=== PATIENT | male | born 1940 | race Caucasian/White ===

== ENCOUNTER 2019-02-28 22:49 | Inpatient (IN) | payer OTHER ==
[~2019-02-28] VITALS: Ht 177.8 cm; Wt 97.7 kg
[2019-03-01] MEDS ORDERED: ASA81BEC PO (00:50)
[2019-03-01] MEDS ORDERED: ARICEPT10 M1 PO (00:50)
[2019-03-01] MEDS ORDERED: KLOR-CON M2020 MEQ PO (00:52)
[2019-03-01] MEDS ORDERED: DULCOLAX10 MG RECTAL (00:52)
[2019-03-01] MEDS ORDERED: LANTUS SUBQ (00:53)
[2019-03-01] MEDS ORDERED: PRINIVIL20 M1 PO (00:54)
[2019-03-01] MEDS ORDERED: MILK OF MA400 MG/5 M PO (00:55)
[2019-03-01] MEDS ORDERED: NORVASC10 MG PO (00:56)
[2019-03-01] MEDS ORDERED: 8 HOUR650 MG PO (00:57)
[2019-03-01] MEDS ORDERED: ATIVAN2 MG PO (00:58)
[2019-03-01] MEDS ORDERED: CARVEDILOL12.5 MG PO (00:59)
[2019-03-01] MEDS ORDERED: PLAVIX 75 MG TA75 MG PO (01:00)
[2019-03-01] MEDS ORDERED: PROTONIX40 M3 PO (01:00)
[2019-03-01] MEDS ORDERED: HUMALOG100 UNIT/1 SUBQ (01:01)
[2019-03-01] MEDS ORDERED: CATAPRES-TTS 11 EACH TRANSDERM (01:03)
[2019-03-01] MEDS ORDERED: CENTRUM SILVER1 EAC4 PO (01:04)
[2019-03-01] MEDS ORDERED: SEROQUEL 25 MG25 MG PO (01:05)
[2019-03-01] MEDS ORDERED: SEROQUEL 25 MG25 M1 PO (01:06)
[2019-03-01] MEDS ORDERED: ZYPREXA2.5 MG PO (01:20)
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
--- NOTE | 2019-03-01 02:28 | NUR ---
PATIENT AWOKE AND BED ALARM WENT OFF. NURSE ASSISTED PATIENT TO THE BATHROOM TO VOID PER HIS REQUEST. PATIENT C/O RIGHT SIDE OF HEAD AND EAR IS HURTING. EMS STATES PATIENT SAID HE HAD A TOOTHACHE ON HIS WAY TO [facility]. PATIENT DENIED IT ONCE HE GOT HERE. TYLENOL 650MG PO ORDERED AND WILL GIVE. PATIENT BACK TO SLEEP. WILL CONTINUE TO MONITOR.
[2019-03-01 09:46] VITALS: BP 167/88
--- NOTE | 2019-03-01 09:57 | NUR ---
PT AGITATED AND DELUSIONAL UPON INITAL ASSESSMENT YELLING AT FURNACE MECHANIC TO GET OUT OF HIS HOUSE-REFUSING TO GET UP FOR BREAKFAST-DID ALLOW VS AND BLOOD SUGAR-BS 101.AT APPROX 0845 ALERT BY RT STAFF SITTING AT NURSING STATION THAT SHE HAD HEARD A NOISE AND SAW PT SITTING ON FLOOR IN DOORWAY/HALLWAY AREA OF ROOM. IS RESISITIVE WITH COMPLETE ASSESSMENT BUT NO NOTED BRUSIING SCRAPES,ABRASIONS NOTED,DENIES C/O PAIN/DISCOMFORT. VS OBTAINED BP 160/84 P-78 R14- ASSSITED BACK TO BED WITH 2-3 STAFF-REMAINS UNCCOPERATIVE AND DOES NOT FOLLOW VERBAL COMMANDS-REFUSES BREAKFAST AND PO MEDS WHEN OFFERED.
[2019-03-01 10:10] VITALS: BP 163/74
--- NOTE | 2019-03-01 12:33 | NUR ---
RAPID RESPONSE CALLED FOR PT IN ROOM 518-A. SEE RR FLOWSHEET FOR DETAILS. PT WILL REMAIN ON UNIT FOR THE TIME BEING PER DR ARNOLD.
--- NOTE | 2019-03-01 12:44 | NUR ---
BLOOD SUGAR REPORTED TO BE 254 AT 1130 WHEN CHECKED BY INFORMATION SYSTEMS SECURITY SPECIALIST-12 UNITS OF INSULIN DRAWN UP/COSIGNED AND ADMINSTERED AT APPROX 1200-DURING ADMINISTRATION OF INSULIN NOTED TO BE DIAPHORETIC-SKIN COOL TO TOUCH AND PALE-RESPONDS TO PAINFUL STIMULI BUT NOT TO VERBAL COMMANDS-RAPID RESPONSE INITATED-VS OBTAINED PULSE 64 AND IRREGULAR-O2 SAT 94 PERCENT ON RA-BP NOT REGISTERING ON MACHINE-ADRIENNE BP-110/64. ASSSITED TO BED BY 3 STAFF-IV PLACED USING 20 GUAGE NEEDLE IN RIGHT ANTICUBITAL AND NORMAL SALINE STARTED PER MD ORDER. BLOOD SUGAR RECHECKED AT APPROX 1214 AND IS 286. BP 119/58 9 63 02 SAT 95PERCENT. WILL RESPOND TO VERBAL COOMANDS AT APPROX 1225-BUT IS SLOW TO RESPOND. AT APPROX 1240 BP 120/60 P 78-RESP EVEN AND REGUALR O2 SAT 96 ON RA. ON CONSTANT OBSERVATION UNTIL COMPLETION OF IV FLUIDS- RESPONSE INITATED
[2019-03-01 12:53] LABS: ALBUMIN 3.3 g/dL (3.4-5.0); ANION GAP 10 mmol/L (7-16); BUN 15 mg/dL (7-18); CHLORIDE 104 mmol/L (98-107); CO2 25 mmol/L (21-32); CREATININE 1.2 mg/dL (0.7-1.3); GLUCOSE 161 mg/dL (74-106); MAGNESIUM 1.6 mg/dL (1.8-2.4); POTASSIUM 4.5 mmol/L (3.5-5.1); SGOT 18 U/L (15-37); SGPT 26 U/L (30-65); SODIUM 139 mmol/L (136-145); TOTAL BILIRUBIN 0.5 mg/dL (<0.1-1.0); TOTAL PROTEIN 6.6 g/dL (6.4-8.2); TROPONIN-I <0.06 ng/mL (<0.06)
--- NOTE | 2019-03-01 14:52 | NUR ---
SW met with pt's son Jae and daughter in law Audrey. They both said pt's son Alex is out of town at the moment but he lives in [place]; Audrey and Jae live in [place]. SW asked them if they had any questions about hospice. They said not at this time, however, when pt is closer to being discharged from this unit they may pick a hospice provider at that time. Jae prefers SW make contact with Audrey about his father because she better understands this process. Audrey's number is [phone]. SW team will continue to follow pt during his stay on this unit.
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
--- NOTE | 2019-03-01 17:37 | NUR ---
REMAINS IN BED WITH EYES TIGHTLY CLOSED-FACE FLUSHED AND WHEN COVERS REMOVED TO CHECK BP YELLS LOUDLY "COVER ME BACK UP YUE YOU-AFTER SEVERAL ATTEMPTS WAS ABLE TO OBTAIN BP 133/61 P 55 RESP 16 O2 SAT 97. REFUSES TO COMPLY WITH REQUESTS FROM STAFF-2 STAFF AT BEDSIDE TO GET ACCUCHECK 133- REFUSING TO GET UP OR EAT-REFUSING TO COMMUNICATE WITH STAFF-CLOSES EYES AND ROLLS AWAY FROM STAFF. DR CATALINA PRINGLE RE HOLDING INSULIN-AWAITING RETURN CALL.
--- NOTE | 2019-03-01 17:42 | NUR ---
DR. CRANE CONTACTED REGARDING NOT ADMINISTERING 4 UNITS OF INSULIN D/T PT REFUSING TO EAT.
[2019-03-01 19:10] LABS: HEMATOCRIT 44.4 % (42.0-52.0); HEMOGLOBIN 14.8 gm/dL (14.0-18.0); MCH 30.5 pg (26.0-34.0); MCHC 33.4 g/dL (28.0-37.0); MCV 91.3 fL (80.0-100.0); RBC 4.86 mil/uL (4.50-6.00); RDW 14.3 % (10.5-14.5); WBC 10.4 thou/uL (4.0-11.0)
[2019-03-01 20:10] VITALS: BP 149/60
[2019-03-01 23:06] LABS: GLYCOHEMOGLOBIN (HGB A1C) 7.1 % (4.8-5.6)
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
--- NOTE | 2019-03-02 07:30 | NUR ---
Assumed care of patient this am. Patient sitting in wheel chair in mileu at a table by himself. Patient was irritable and asked about his . Patient used several explicit, innappropriate words to express his frustrations with being here. Patient ambulates with wheel chair. Patient takes medications whole with fluids. Patients affect tense. Patients assessment shows wheezes in the right upper lobe, active bowel sounds, and s1 s2 faintly heard with auscultation. Patient denies pain at this time.
[2019-03-02 08:00] VITALS: BP 121/61
[2019-03-02 09:22] VITALS: BP 121/61
[2019-03-02 20:22] VITALS: BP 147/73
--- NOTE | 2019-03-02 23:49 | NUR ---
ASSUMED CARE ON 03/02/19 @ 19:15, SEATED IN THE DAY ROOM. ANGRY VERBAL INTERACTIONS NOTED WITH STAFF THEY PROVIDED CARE TO PATIENT. (YELLING, AND OBSCENITIES). TRANSFERRED TO BED X 2 ASSIST WITH PHYSICAL RESISTANCE AND HITTING. VERBAL OBSCENITIES YELLED DURING CARE. PATIENT TOOK HALF OF HIS PO MEDS AND REFUSED THE OTHER HALF. MORE OBSCENITIES AND PHYSICAL VIOLENCE NOTED. GIVEN OLANZAPINE 5 MG IM @ 21:20 BY X 3 STAFF AND X2 SECURITY. AFTER PT RECEIVED IM, HE WAS IMMEDIATELY WILLING TO TAKE THE REMAINDER OF HIS PO MEDS AND HIS EAR DROPS. 5 MINUTES LATER AGREED TO ACCEPT HIS INSULIN 20 U OF GLARGINE.
[2019-03-03 01:01] VITALS: BP 147/73
--- NOTE | 2019-03-03 05:46 | NUR ---
SLEPT 8.2 HOURS
--- NOTE | 2019-03-03 05:47 | NUR ---
SLEPT 8.2 HOURS
[2019-03-03 09:18] VITALS: BP 120/65
[2019-03-03 10:03] VITALS: BP 120/65
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
--- NOTE | 2019-03-03 15:01 | NUR ---
RACHANA faxed updates to [facility] for pt to [phone]. RACHANA team will continue to follow pt during his stay on this unit.
--- NOTE | 2019-03-03 17:08 | EKG ---
[place] [address] [facility] [place] [address] ELECTROCARDIOGRAM REPORT Name: IRMA RHODES Room #: 518A-A ADM IN M.R.#: [id number] Admission: 03/01/19 Attend Phys: Sergio Roth DO Discharge: Date of : 40 Report #: [id number] THIS REPORT FOR: //name// [facility] Test Date: 2019-03-01 Test Time: 12:25:11 Pat Name: IRMA RHODES Department: Room: [facility] A Gender: M Career Development Associate: Soraya ILNK : 1940 Requested By: Isiah Capone Order Number: [id number] MD: Aquilino Roca Measurements Intervals [place] Rate: 65 P: 10 NE: 220 QRS: -67 QRSD: 124 T: -10 QT: 440 QTc: 458 Interpretive Statements Sinus rhythm Prolonged NE interval Left bundle branch block No previous ECG available for comparison Electronically Signed On 03-03-2019 17:07:56 WHARF WORKER by Aquilino Roca [email or web address] <ELECTRONICALLY SIGNED> By: Aquilino Roca MD 03/03/19 1707 1225 Aquilino Roca MD /GERMAN
--- NOTE | 2019-03-03 17:19 | NUR ---
Assumed care at 0700. Patient calm and cooperative. Participated in the group therapy. Good appetite. Very tearful at times. Family visited and he is happy. Alert and oriented x2. Clean and dressed neatly. No HI or SI. Takes meds whole without any problems. Insulin in use. Will continue with the plan of care.
[2019-03-03 19:38] VITALS: BP 132/65
--- NOTE | 2019-03-03 22:44 | NUR ---
Care assumed of patient at 1915: Patient resting in bed at start of shift. Patient easily arousable. Patient alert and oriented to person only. Patient disoriented to current place, time and situation. Patient re-oriented but forgot location after a couple minutes. Patient calm, pleasant and cooperative. Saying "please" and "thank you" appropriately. No aggression, agitation or cursing observed. No delusional or paranoia behaviors observed. Patient has not asked about his thus far this shift. Patient took HS medication whole without difficulty with honey thickened water. Declined HS snack. Incontinent of bladder. Joana care provided and barrier cream applied. Patient denies pain or discomfort. Denies SI/HI/AH/VH. Patient resting quietly in bed at this time.
[2019-03-04 07:20] VITALS: BP 107/72
[2019-03-04 08:30] VITALS: BP 107/72
--- NOTE | 2019-03-04 09:09 | NUR ---
PT REFUSING TO TAKE MEDS IN PUDDING THIS AM. PT UPSET AND WANTING LAP BAND OFF SO HE CAN GET OUT OF HERE. PT GOT LAP BAND OFF AND GOT UP OUT OF W/C WITH SLIGHT UNSTEADY GAIT. PT WALKED TO EMPLOYEE BREAK ROOM AND TRIED TO OPEN DOOR. ATTEMPTING TO PUT ON GAIT BELT FOR SAFETY, PT TOOK PART OF GAIT BELT AND SWATTING AT STAFF. PT WALKED AROUND TO HIS ROOM WITH X1 STAFF TO HIS ROOM. PT WANTED TO LAY DOWN IN ROOM. PT LAYED DOWN AND THIS NAT INSTRUCTOR PUT ON BED ALARM.
--- NOTE | 2019-03-04 11:10 | NUR ---
ADM RICHARD 10MG IM TO RT DELTOID. THIS CHENILLE MACHINE OPERATOR HAD ANOTHER STAFF ACCOMPANIED TO GIVE SHOT. PT UNDERSTOOD AND STATED HE IS GETTING SHOT DUE TO NOT TAKING HIS AM MEDS. PT STATED HE WILL TAKE HIS MEDS WITH WATER.
--- NOTE | 2019-03-04 12:00 | NUR ---
PT OUT IN DINING ROOM WITH X2 ASSIST TO W/C. PT STATED HE DIDN'T LIKE TURKEY. PT STATED HE DIDN'T LIKE CHICKEN EITHER. THIS DIRECTOR AMBULATORY HAD TO FEED HIM MASHED POTATOES. PT DID DRINK THICKENED TEA AND MILK. PT ACCEPTED HIS INSULIN SHOT.
--- NOTE | 2019-03-04 12:15 | NUR ---
PT SEEMS CALMER AND NOT CURSING. PT STILL WOULD LIKE TO GET OUT OF HIS CHAIR, PT STATED THAT THE CHAIR IS STUCK.
--- NOTE | 2019-03-04 14:39 | NUR ---
PT LYING DOWN IN BED AND IS SNORING AT THIS TIME. HIS SON PAT CALLED TO CHECK UP ON HIM. HE KNEW HIS CODE.
[2019-03-04 19:55] VITALS: BP 189/76
--- NOTE | 2019-03-04 22:30 | NUR ---
Care assumed of patient at 1915: Patient laying in bed at start of shift. Patient easily arousable. Appeared to be awake during the start of shift. Calm, pleasant and cooperative with assessment. Alert and oriented to person only. Confused and forgetful. Denies pain or discomfort. Denies SI/HI/AH/VH. No aggression, agitation, anxiety, or cursing observed. Took HS medication whole without difficulty. Declined HS snack but did request a "Coke". Nurse offered honey thickened juice which he gladly accepted. Patient incontinent of bladder. Katie care provided and linens changed with max assist x2. Cooperative during incontinent care. Antifungal cream applied to katie area and penis. Excoriation present. Patient has been able to rest quietly thus far this shift without any issues to report.
--- NOTE | 2019-03-05 07:30 | NUR ---
Assumed care of patient this am. Patient in bed lying down. Patient denies pain. Patient takes medications whole. Patient agitated and angry this am using derogatory language and asking about his . Patient ambulates via wheelchair. Patients affect flat, facial muscles tense. Patients assessment shows clear breath sounds, active bowel sounds, and s1 s2 heard with auscultation.
[2019-03-05 08:00] VITALS: BP 140/67
[2019-03-05 08:24] VITALS: BP 140/67
--- NOTE | 2019-03-05 09:48 | NUR ---
Patient given IM prn medication for agitation and physical outbursts.
[2019-03-05 19:19] VITALS: BP 194/86
--- NOTE | 2019-03-05 19:57 | NUR ---
ASSUMED CARE ON 03/05/19 @ 19:15, IN BED EYES CLOSED RESPIRATIONS EVEN AND UNLABORED. DAUGHTER CALLED @ 19:30 FOR AN UPDATE, EXPLAINED THAT SHE DID NOT COME TO VISIT TODAY D/T ROAD CONDITIONS. REPORTS THAT SON DOMINIC IS COMMING BACK IN TO [place] TOMORROW AND WILL VISIT THEN. COOPERATED WITH ASSESSMENT, HRRR, S1S2 AUSCULTATED, LUNGS CTA ALL V[place]ASQUEZ, ABD N X 4 Q. UNABLE TO REPORT WHEN HAD LAST BM. WILL CONTINUE TO MONITOR Q 12 MINUTES FOR PATIENT SAFETY. BED IN LOW POSITION, BED ALARM SET.
[2019-03-06 00:10] VITALS: BP 194/86
--- NOTE | 2019-03-06 02:52 | NUR ---
VERBALLY ABUSIVE, USING CURSE WORDS TO STAFF, HITTING STAFF IN THE ABDOMEN WITH INCONTINENT CARE. TOOK PO MEDS OKAY, WITH HONEY THICK FRUIT JUICE. WHEN OFFERED INSULIN SHOT IN THE ABDOMEN, HIT STAFF AND USED OBSCENITIES TO SAY, NO I GO DAMN WELL DONT WANT IT IN MY STOMACH. YOU BITCHES SHOULD KNOW I WANT IT IN MY ARM. EDUCATION PROVIDED REGARDING USING WORDS TO TELL STAFF HIS DESIRES WITHOUT CUSSING. AWAKE AGAIN @ 0200 INCONTINENT CARE AND THICKENED APPLE JUICE PROVIDED.
--- NOTE | 2019-03-06 06:15 | NUR ---
SLEPT WELL ALL NIGHT FOR A TOTAL OF 8 HOURS OF SLEEP.
--- NOTE | 2019-03-06 07:18 | NUR ---
PT REFUSED AM BLOOD SUGAR
--- NOTE | 2019-03-06 08:00 | NUR ---
Assumed care of patient this am. Patient in bed resting. Patient irritable and refused morning vitals for the tech. RN later came in and got vital signs without issue. Patients affect tense. Patient asked about "Lizzie" this am and was redirected towards taking his medications. Patient ambulates in a wheel chair. Patients mood very labile. Patients blood pressure was 183/78 prior to medications. Patients assessment shows clear breath sounds, active bowel sounds, and s1 s2 heard with auscultation.
[2019-03-06 08:30] VITALS: BP 183/78
[2019-03-06 13:20] VITALS: BP 102/60
[2019-03-06 19:32] VITALS: BP 166/89
[2019-03-06 21:18] VITALS: BP 166/89
--- NOTE | 2019-03-07 01:39 | NUR ---
ASSUMED CARE AT 0000. PT JUST AWAKENED TO USE RESTROOM. DENIES PAIN. VERY COOPERATIVE. NO NEEDS VOICED. FREQUENT OBSERVATION.
--- NOTE | 2019-03-07 05:50 | NUR ---
PT SLEPT THROUGH THE NIGHT EXCEPT FOR TWO TRIPS TO THE BATHROOM.
[2019-03-07 08:10] VITALS: BP 150/69
--- NOTE | 2019-03-07 10:02 | NUR ---
IRRITABLE MOOD THIS AM -INITALLY REFUSED ALL AM MEDS AND WAS SWEARING AT STAFF-LATER DID TAKE WITH PROMPTING.
--- NOTE | 2019-03-07 18:08 | NUR ---
REMAINS AGITATED AND IRRITABLE WITH REQUESTS FROM NURSING STAFF-AT ONE POINT GOT UP OUT OF BED ON OWN AND WAS WALKING DOWN HALLWAY WITH A VERY UNSTEADY GAIT WHEN ATTEMPTED TO ASSIST BACK TO ROOM AND WC YELLS LOUDLY "GET AWAY FROM ME YOU STUPID BITCH" TEARFUL AT TIMES DURING SHIFT REPORTING THAT STOMACH HURT-MD NOTIFIED PT STRAINING ON COMMODE IF CONSTIPATED AND ORDER RECEIVED FOR FLEETS ENEMA-ALTHOUGH PT DID HAVE LARGE LOOSE BM PRIOR TO ADMINISTRATION OF ENEMA AND O RECEIVED TO DC ENEMA. EATING WELL WITHOUT ASSISIT CLEANS TRAY AT EVERY MEAL AND WILL FREQUENTLY ASK FOR MORE. ACCUCHECK AND SS INSULIN PER MD ORDER
[2019-03-07 19:37] VITALS: BP 121/76
--- NOTE | 2019-03-07 20:03 | NUR ---
ASSUMED CARE ON 03/07/19 @ 19:15, IN ROOM AWAKE AND ORIENTED TO PERSON AND ONLY. COOPERATED WITH ASSESSMENT, HRRR, S1S2 AUSCULTATED. LUNGS CTA, ABD N X 4 Q. PATIENT DENIES SI AND HI. DENIES AH/VH. BED IN LOW POSITION, BED ALARM SET, WILL CONTINUE TO MONITOR Q 12 MINUTES FOR PATIENT SAFETY.
--- NOTE | 2019-03-08 07:30 | NUR ---
Assumed care of patient this am. Patient calm and pleasant and asked about his Lizzie. Patient was redirected and did fine. Patient ambulates with a walker or wheelchair depending on balance. Patient takes medications whole with thick fluids. Patient denies pain. Patients assessment shows clear breath sounds, active bowel sounds, and s1 s2 heard with auscultation.
[2019-03-08 07:47] VITALS: BP 127/62
[2019-03-08 07:48] VITALS: BP 175/101
[2019-03-08 08:00] VITALS: BP 175/101
--- NOTE | 2019-03-08 13:09 | NUR ---
Date of Admission: 03/01/19 Date of Activity Therapy Assessment: 03/04/19 Activity Goal: Increase engagement Initial Goal: 1 Group activity/day Weekly progress towards goal: Did not achieve goals Group participation level: Minimal Behaviors observed: Patient does not consistently participate in groups per social preference of patient, though at times he is willing to sit on the edge. When present, patient can be heard mumbling under his breath. No further behaviors. Plan: No change towards goal
--- NOTE | 2019-03-08 14:00 | NUR ---
Patient sleeping and difficult to arouse verbally. Patient had a clonidine patch put on prior to being lethargic. Will continue to monitor.
--- NOTE | 2019-03-08 16:00 | NUR ---
RACHANA spoke with Ally at [facility] who said d/c was fine. She asked SW to set up medical transport as they do not have transportation services for long distance. RACHANA and Ally planned for a 10am d/c so pt can get to the facility before lunch. SW team will continue to follow pt during his stay on this unit.
--- NOTE | 2019-03-08 17:00 | NUR ---
Patient still sleeping and somewhat difficult to arouse. Patient sat at the dinner table and slept in the wheelchair for an hour before finally eating a few bites and drinking his milk. Patient then requested to go back to bed. Doctor notified.
--- NOTE | 2019-03-08 20:04 | NUR ---
ASSUMED CARE ON 03/08/19 @ 19:15, IN THE DAY ROOM SEATED IN W/C. ON FALL PRECAUTIONS. ALERT, ORIENTED X1 TO PERSON ONLY. DELUSION THAT , MEGGAN IS STILL ALIVE, STANDS UP OUT OF W/C AND AMBULATES AROUND LOOKING FOR . COOPERATED WITH ASSESSMENT, HRRR, S1S2 NOTED, LUNGS CTA UPPER [place] AND DIMINISHED IN THE LOWER V[place]. ABD N X 4Q HAD A BM TODAY 03/08. WILL CONTINUE TO OBSERVE Q 12 MINUTES FOR PATIENT SAFETY.
[2019-03-08 20:19] VITALS: BP 127/70
--- NOTE | 2019-03-09 01:19 | NUR ---
ACCEPTED MEDICATIONS, ABLE TO TAKE PO TABLETS WHOLE WITH PUDDING & HONEY THICK BEVERAGE D/T ASPIRATION RISK. ATE 100% OF SNACK AND HONEY THICK APPLE JUICE. DEBROX EAR DROPS INSTILLED ORDERED. SLEEPING WELL AT THIS WRITING, TYLENOL 650 PROVIDED FOR 4/10 PAIN SCALE OF HIS EARS. UPON FOLLOW UP PATIENT WAS NOTED TO BE ASLEEP. WILL CONTINUE TO ROUND Q 12 MINUTES FOR PATIENT SAFETY, BED IN LOW POSITION, BED ALARM SET.
[2019-03-09 01:33] VITALS: BP 127/70
--- NOTE | 2019-03-09 06:36 | NUR ---
SLEPT WELL FOR A TOTAL OF 7.8 HOURS. GIVEN INCONTINENT CARE AND DRESSED IN CLEAN HOSPITAL PANTS AND YELLOW SHIRT. BED IN LOW POSIITON, BED ALARM SET. WILL CONTINUE 12 MINUTE ROUNDING FOR PATIENT SAFETY.
[2019-03-09 07:40] VITALS: BP 134/65
[2019-03-09 10:14] VITALS: BP 134/65
--- NOTE | 2019-03-09 10:31 | NUR ---
0648 RESUMMED CARE FROM OVERNIGHT SHIFT, PATIENT GOT UP TO EAT BREAKFAST AND AT FIRST WAS SPITTING OUT MEDICATION. I PUT THEM IN HIS OATMEAL AND HE TOOK THEM. PATIENT HAD AN EPISODE OF INCONTINENCE AND i HAD TO TAKE HIM AND CLEAN HIM UP AFTER BREAKFAST. PATIENT WAS REDIRECTABLE, NO AGITIATION, CALM. PATIENT'S SON CALLED FROM OUT OF TOWN TO CHECK ON PATIENT, WE WILL CONTINUE TO MONITOR PATIENT FOR SAFETY AND BEHAVIORS.
--- NOTE | 2019-03-09 15:22 | NUR ---
RACHANA set up transportation with [employer] for 10AM. RACHANA reported this to spouse via VM. ANd [place] [facility] confirm.
[2019-03-09 19:36] VITALS: BP 150/63
--- NOTE | 2019-03-09 22:04 | NUR ---
PATIENT CALM AND COOPERATIVE. HE DID TAKE HIS MEDS WHOLE. LANTUS INJECTION OF 22 UNITS GIVEN AT HS AND GLUCOSE 223. PATIENT IS RELAXED AND CALM. RESTING IN BED. ASSISTED PATIENT TO BATHROOM WHERE HE HAD A LARGE FORM BROWN BM. THIS IS 2ND ONE FOR THE DAY. EAR DROPS APPLIED TO RIGHT EAR. PATIENT DENIES PAIN. BED ALARM ON AND BED IN LOW POSITION. CONTINUING TO MONITOR.
--- NOTE | 2019-03-10 00:59 | NUR ---
PATIENT UP WALKING TO BATHROOM. WHEN ASSISTING TO GET HIM IN THE DOOR HE STATES HE DOESN'T HAVE TO GO. HE STATES HE'S UP AND LOOKING FOR WHAT'S GOING ON OUTSIDE. HE THINKS IT'S TIME TO GET UP. HE REFUSES TO USE HIS WALKER AND IS ASSISTED BY ANOTHER NURSE DOWN THE JONES. HE REFUSES TO GO BACK TO HIS ROOM AND IS BECOMING AGITATED. HE THINKS THERE IS A CHILD SOMEWHERE ON THE UNIT. THIS NURSE WAS CALLING DR CRANE FOR AN ORDER FOR SLEEP D/T THIS IS THE 4TH TIME PATIENT HAS GOTTEN OUT OF BED FOR NO DIRECT REASON. HE DENIES PAIN. HE DOESN'T HAVE TO USE THE BATHROOM. ATIVAN 0.5MG PO NOW ORDERED AND MAY REPEAT IN 45 MINUTES IF PATIENT HAS NOT CALMED OR GONE BACK TO SLEEP. BED IN LOW POSITION AND BED ALARM ON. CONTINUING TO MONITOR.
--- NOTE | 2019-03-10 04:27 | NUR ---
PATIENT GOT UP ONCE SINCE HAVING ATIVAN TO USE THE BATHROOM WITH ASSISTANCE D/T UNSTEADY BALANCE. PATIENT ALSO REQUESTED A COKE. HONEY THICKENED WATER GIVEN TO HIM INSTEAD. PATIENT HAS SLEPT SINCE THEN. BED IN LOW POSITION AND BED ALARM ON. PATIENT HAS BEEN COOPERATIVE TONIGHT.
--- NOTE | 2019-03-10 06:22 | NUR ---
PATIENT ASSISTED TO THE BATHROOM TO VOID. PERINEAL AREA/SCROTAL RED AND ITCHING. AREA CLEANED AFTER EACH VOID AND ANTIFUNGAL CREAM APPLIED TO AREA. PATIENT TOOK MORNING MEDS WHOLE WITH HONEY THICKENENED LIQUID AND BACK TO BED. BED IN LOW POSITION. BED ALARM ON. PATIENT GROGGY FROM ATIVAN STILL. PT RESTING IN BED WITH EYES CLOSED. NO BEHAVIORS.
[2019-03-10 07:48] VITALS: BP 140/68
[2019-03-10] MEDS ORDERED: CATAPRES-TTS 20.2 MG TRANSDERM (09:05)
[2019-03-10] MEDS ORDERED: COREG6.25 MG PO (09:06)
[2019-03-10] MEDS ORDERED: LISINOPRIL10 MG PO (09:07)
[2019-03-10] MEDS ORDERED: RISPERDAL 1 MG T1 MG PO ×2 (09:08)
[2019-03-10] MEDS ORDERED: EAR DROPS15 ML OTIC (09:09)
[2019-03-10] MEDS ORDERED: LANTUS SUBQ (09:10)
--- NOTE | 2019-03-10 09:44 | NUR ---
SW D/C note SW faxed to [facility] updated nursing notes as requested. No other needs for SW team to address at this time.
--- NOTE | 2019-03-10 09:53 | NUR ---
Lying supine in bed without s/o distress. Up to with assistance of 1 staff member with transfer. Alert and orientated to person only. Denies pain, SI, HI. Cooperative and compliant without any negative behaviors this AM. Breath sounds clear t/o, bilaterally equal. Reg HR auscultated. Color pink with brisk capillary refill and palpable peripheral pulses. Brief dry. Active bowel sounds over soft, rounded abdomen. Slight amount of pink around penis/scrotal area, buttocks without reddness. Ate breakfast without difficulty with several requests to go back to bed. Currently attending group. 1000 Plan on discharge per to [facility] in [facility]. Report called. Nursing staff requesting records of behaviors.
--- NOTE | 2019-03-16 00:39 | D ---
[facility] [place] [address] DISCHARGE SUMMARY Name: IRMA RHODES Room #: 518A-A [facility] IN M.R.#: [id number] Admission: 03/01/19 Attend Phys: Sergio Roth DO Discharge: 03/10/19 Date of : 40 Report #: [id number] THIS REPORT FOR: //name// CC: Sergio Roth FAM physician/PCP DATE OF SERVICE: 03/10/2019 INPATIENT PSYCHIATRIC DISCHARGE SUMMARY ATTENDING PHYSICIAN: Sergio Roth DO. POLISHING MACHINE OPERATOR AT THE TIME OF DISCHARGE: Isiah Capone MD DISCHARGE DIAGNOSES: Major neurocognitive disorder, likely due to Alzheimer disease with behavioral disturbance, much improved. Medical comorbidities include diabetes mellitus, hypertension, history of CVA, coronary artery disease, status post stent placement. DISCHARGE PLAN: The patient is discharging back the [facility]. Psychiatric and medical care will be by receiving facility. DIET: Honey thick liquids. He had been getting a regular diet, but I am recommending an 1800-calorie diabetic diet at discharge. DISCHARGE MEDICATIONS: Are as follows: Clonidine 0.2 mg transdermal patch weekly on Thursday for hypertension, primarily, also obsessive compulsive control; Coreg 6.25 mg p.o. daily for hypertension, lisinopril 10 mg p.o. daily for hypertension, risperidone 1 mg at 0800 hours and at bedtime for psychosis and impulse control, Debrox drops 10 drops in each ear for at least another week. The patient has been impacted cerumen. Insulin glargine 22 units subcu at bedtime. Recommending blood sugars before meals and at bedtime. He was given a sliding scale here, but I will defer to correction doctor and that needs to be continued. Also, potassium chloride 20 mEq p.o. b.i.d. for supplementation, Plavix 1 mg p.o. daily for anticoagulation, pantoprazole 40 mg p.o. daily at 0700 for GERD. LABORATORY DATA: Significant laboratories this admission on 03/01/2019, he had a CBC was within normal limits. Chemistries on the , he also had a CMP, sodium 139, potassium 4.4, chloride 104, bicarbonate 25. Hemoglobin A1c is 7.1. Magnesium was 1.6, calcium 9.0. TSH 2.446. Troponin was negative. This was done on 03/01/2019. We got the patient transferred from [facility]. HOSPITAL COURSE: The patient was initially irritable, using the F word. We started him on risperidone, titrated to 1 mg twice per day. His behavior improved. The patient is quite advanced in his dementia. I am not planning on [address] [address] DISCHARGE SUMMARY Name: IRMA RHODES Room #: 518A-A [facility] IN M.R.#: [id number] Admission: 03/01/19 Attend Phys: Sergio Roth DO Discharge: 03/10/19 Date of : 40 Report #: [id number] much improvement. We had a family meeting with the patient, was counseled on this. On the day of discharge, the patient was not suicidal or homicidal, in fair condition. He is in a wheelchair mainly for mobility. He can walk for brief periods in transfer. VITAL SIGNS: On the day of discharge are as follows, temperature 36.8, pulse 60, respirations 15, BP 140/68, O2 sat 97%. MUSCULOSKELETAL: Abnormal gait, seated station. MENTAL STATUS EXAMINATION: This is a well-developed, disheveled male, appearing stated age. Attention limited. Concentration limited. Speech is normal rate. Thought process is linear and goal directed. Thought content: Focused on discharge. No psychomotor agitation, some psychomotor retardation. Denied SI or HI. Denied auditory, visual, or tactile hallucinations. Memory impaired, insight impaired, judgment impaired. Fund of knowledge below average. PROGNOSIS: For this patient is guarded to poor given his advanced dementia, medical comorbidities, also hospice services have been recommended to be obtained at [facility]. <ELECTRONICALLY SIGNED> By: Sergio Roth DO 03/16/19 0039 [id number] Sergio Roth DO /nt
== END 2019-03-10 10:50 | DRG 57 ==
LOC: SBH
PROVIDERS: Internal Medicine; ADMIT Psychiatry & Neurology Psychiatry
DX: G30.9 Alzheimer's disease, unspecified (principal); F01.51 Vascular dementia, unspecified severity, with behavioral disturbance; N18.9 Chronic kidney disease, unspecified; G93.40 Encephalopathy, unspecified; I13.0 Hypertensive heart and chronic kidney disease with heart failure and stage 1 through stage 4 chronic kidney disease, or unspecified chronic kidney disease; F02.81 Dementia in other diseases classified elsewhere, unspecified severity, with behavioral disturbance; I25.10 Atherosclerotic heart disease of native coronary artery without angina pectoris; K21.9 Gastro-esophageal reflux disease without esophagitis; F32.9 Major depressive disorder, single episode, unspecified; Z66 Do not resuscitate; E11.22 Type 2 diabetes mellitus with diabetic chronic kidney disease; J44.9 Chronic obstructive pulmonary disease, unspecified; I50.9 Heart failure, unspecified; E78.5 Hyperlipidemia, unspecified; E66.9 Obesity, unspecified; Z68.30 Body mass index [BMI] 30.0-30.9, adult; Z86.73 Personal history of transient ischemic attack (TIA), and cerebral infarction without residual deficits; Z79.4 Long term (current) use of insulin; Z79.899 Other long term (current) drug therapy; Z95.5 Presence of coronary angioplasty implant and graft; Z79.82 Long term (current) use of aspirin; Z87.01 Personal history of pneumonia (recurrent); Z99.3 Dependence on wheelchair
CPT/HCPCS: 10880